=== PATIENT | male | born 1960 | race Two or more races ===

== ENCOUNTER 2022-03-18 20:55 | Inpatient (IN) | payer MEDICARE, OTHER ==
[~2022-03-18] VITALS: Ht 162.6 cm; Wt 82.1 kg
[2022-03-18 22:16] LABS: Basophils # (auto) 0 10 ^3/uL (0-0.2); Basophils % (auto) 0.1 % (0.0-2.0); Eosinophils # (auto) 0 10 ^3/uL (0-0.8); Hematocrit 46.1 % (41.0-53.0); Hemoglobin 15.2 g/dL (13.5-17.5); Lymphocytes # (auto) 0.5 10 ^3/uL (0.4-5.4); Lymphocytes % (auto) 3.3 % (10.0-50.0); Mean Corpuscular Hemoglobin 29.6 pg (28.0-32.0); Mean Corpuscular Hgb Conc. 32.9 g/dL (32.0-36.0); Monocytes # (auto) 1.9 10 ^3/uL (0-1.3); Monocytes % (auto) 11.8 % (0.0-12.0); Neutrophils % (auto) 84.8 % (37.0-80.0); Nucleated Red Blood Cells % 0.1 %; Red Blood Cells 5.12 10^6/uL (4.5-5.90); Red Cell Distribution Width 13.6 % (11.8-14.3); White Blood Cell 16.6 10^3/uL (4.4-10.8)
[2022-03-18 22:19] LABS: Albumin 1.8 g/dL (3.4-5.0); BUN/Creatinine Ratio 23.8; Calcium 8.2 mg/dL (8.5-10.1); Potassium 4.3 mmol/L (3.5-5.1)
[2022-03-18 22:24] LABS: Bilirubin, Total 0.7 mg/dL (0.2-1.0); Total Protein 6.1 g/dL (6.4-8.2)
[2022-03-19 01:14] LABS: Lactic Acid w/Reflex 2.1 mmol/L (0.4-2.0)
[2022-03-19] MEDS ORDERED: SODIUM CHLORIDE 0.9% 1,000 ML IV ONE ×2 (04:30→15:15)
[2022-03-19] MEDS ORDERED: cefTRIAXone 1GM/50ML D5W 50 ML IV ONE (04:30)
[2022-03-19] MEDS ORDERED: InsuLIN REG 1unit/0.01ml Soln (100units/ml) IV ONE (04:30)
[2022-03-19] MEDS ORDERED: SERT50TA19 PO (09:23)
[2022-03-19] MEDS ORDERED: ATOR40TA52 PO (09:23)
[2022-03-19] MEDS ORDERED: NITROGLYCERIN 0.4 MG SL TAB SL PRN (09:30)
[2022-03-19] MEDS ORDERED: HYDROcodone-ACET 5/325MG TAB PO PRN (09:30)
[2022-03-19] MEDS ORDERED: ACETAMINOPHEN 325 MG TAB PO PRN (09:30)
[2022-03-19] MEDS: SODIUM CHLORIDE 0.9% 1,000 ML IV SCH ×2 (09:30→21:35)
[2022-03-19] MEDS ORDERED: DEXTROSE (50%) 50ML SYRG IV PRN (09:30)
[2022-03-19] MEDS ORDERED: DOCUSATE SOD 100 MG CAP PO PRN (09:30)
[2022-03-19] MEDS ORDERED: ONDANSETRON HCL 4 MG/2 ML VIAL IV PRN (09:30)
[2022-03-19] MEDS ORDERED: MORPHINE SULFATE INJ 2 MG/ml SYRG IV PRN (09:30)
[2022-03-19 09:42] VITALS: BP 148/73
[2022-03-19 10:06] LABS: Basophils # (auto) 0 10 ^3/uL (0-0.2); Basophils % (auto) 0.1 % (0.0-2.0); Eosinophils # (auto) 0 10 ^3/uL (0-0.8); Eosinophils % (auto) 0.1 % (0.0-7.0); Hematocrit 44.6 % (41.0-53.0); Hemoglobin 14.3 g/dL (13.5-17.5); Lymphocytes # (auto) 0.9 10 ^3/uL (0.4-5.4); Lymphocytes % (auto) 5.5 % (10.0-50.0); Mean Corpuscular Hemoglobin 29.3 pg (28.0-32.0); Mean Corpuscular Hgb Conc. 32.1 g/dL (32.0-36.0); Mean Corpuscular Volume 91.1 fL (80.0-100.0); Monocytes # (auto) 2.2 10 ^3/uL (0-1.3); Monocytes % (auto) 13.2 % (0.0-12.0); Neutrophils # (auto) 13.8 10 ^3/uL (1.6-8.6); Neutrophils % (auto) 81.1 % (37.0-80.0); Red Cell Distribution Width 13.1 % (11.8-14.3)
[2022-03-19 10:28] LABS: Albumin 1.7 g/dL (3.4-5.0); Bilirubin, Total 0.5 mg/dL (0.2-1.0); Calcium 8.3 mg/dL (8.5-10.1); Potassium 3.7 mmol/L (3.5-5.1); Total Protein 6.8 g/dL (6.4-8.2)
[2022-03-19] MEDS: IPRATROPIUM BROM 0.5 MG/2.5ML INH SOL NEB SCH ×2 (11:11→19:08)
[2022-03-19] MEDS: ALBUTEROL SULF 2.5 MG/0.5ML(0.5%) NEB SOLN NEB SCH ×3 (11:11→19:08)
[2022-03-19] MEDS: ACCU-CHEK COMFORT CURVE STRIP VI SCH ×2 (11:30→19:40)
[2022-03-19] MEDS ORDERED: IOHEXOL 350 MG/ML 100ML IJ ONE (11:49)
[2022-03-19] MEDS ORDERED: VANCOMYCIN PER PHARMACY 0 MG IV SCH (12:00)
[2022-03-19] MEDS ORDERED: VANCOMYCIN 1GM/250ML 250 ML IV ONE (12:00)
[2022-03-19 12:09] LABS: INR 1.14 (0.9-1.15)
[2022-03-19] MEDS: InsuLIN REG 1unit/0.01ml Soln (100units/ml) SC SCH ×2 (12:49→19:40)
[2022-03-19] MEDS: PANTOPRAZOLE 40 MG/10 ML VIAL INJ IV SCH (14:01)
[2022-03-19] MEDS: PIPERACILLIN-TAZOB 3.375GM 100 ML IV SCH ×2 (14:02→21:34)
[2022-03-19] MEDS: SERTRALINE HCL 50 MG TAB PO SCH (14:02)
[2022-03-19] MEDS: ATORVASTATIN 20 MG TAB PO SCH (14:02)
[2022-03-19] MEDS: methylPREDNISolone SOD SUCC 40 MG/ML VL IV SCH (14:04)
[2022-03-19 15:47] LABS: Amylase 9 U/L (25-115); Lipase 33 U/L (73-393)
[2022-03-19] MEDS ORDERED: ETOMIDATE (2MG/ML) 20ML VIAL IV ONE ×2 (21:50→22:00)
[2022-03-19] MEDS ORDERED: ROCURONIUM 10MG/ML 10ML VIAL IV ONE ×2 (21:51→22:00)
[2022-03-19 21:55] VITALS: BP 107/72
[2022-03-19] MEDS: MIDAZOLAM DRIP 50 mg/50mL 50 ML IV SCH (22:28)
[2022-03-20] VITALS (12 sets, daily range): BP systolic 89–128; BP diastolic 49–64
[2022-03-20] MEDS: MIDAZOLAM DRIP 50 mg/50mL 50 ML IV SCH ×3 (01:26→22:48)
[2022-03-20] MEDS: methylPREDNISolone SOD SUCC 40 MG/ML VL IV SCH ×4 (01:33→21:29)
[2022-03-20 01:40] LABS: Urine Specific Gravity 1.032 (1.001-1.035)
[2022-03-20] MEDS: ACCU-CHEK COMFORT CURVE STRIP VI SCH ×5 (01:40→21:37)
[2022-03-20 01:41] LABS: Urine Blood 2+ /uL (Negative)
[2022-03-20] MEDS: InsuLIN REG 1unit/0.01ml Soln (100units/ml) SC SCH ×5 (01:41→21:31)
[2022-03-20 04:37] LABS: Hematocrit 40.5 % (41.0-53.0); Hemoglobin 13.3 g/dL (13.5-17.5); Mean Corpuscular Hemoglobin 29.6 pg (28.0-32.0); Mean Corpuscular Hgb Conc. 32.8 g/dL (32.0-36.0); Mean Corpuscular Volume 90.1 fL (80.0-100.0); Red Cell Distribution Width 13.1 % (11.8-14.3)
[2022-03-20 04:56] LABS: Basophils % (manual) 0 (0.0-2.0); Blast Cells 0; Eosinophils % (manual) 0 (0-7); Metamyelocytes % 0; Myelocytes % 0; Promyelocytes % 0; Reactive Lymphocytes 0
[2022-03-20] MEDS: SODIUM CHLORIDE 0.9% 1,000 ML IV SCH ×4 (05:05→21:38)
[2022-03-20] MEDS: VANCOMYCIN 1GM/250ML 250 ML IV SCH ×2 (05:05→17:01)
[2022-03-20 05:07] LABS: Albumin 1.3 g/dL (3.4-5.0); BUN/Creatinine Ratio 44.9; Bilirubin, Total 0.8 mg/dL (0.2-1.0); Calcium 7.5 mg/dL (8.5-10.1); Potassium 3.9 mmol/L (3.5-5.1); Total Protein 4.9 g/dL (6.4-8.2)
[2022-03-20] MEDS: IPRATROPIUM BROM 0.5 MG/2.5ML INH SOL NEB SCH ×3 (05:37→18:03)
[2022-03-20] MEDS: ALBUTEROL SULF 2.5 MG/0.5ML(0.5%) NEB SOLN NEB SCH ×3 (05:37→18:03)
[2022-03-20] MEDS ORDERED: dilTIAZem 25 MG/5 ML VIAL IV ONE ×2 (05:45→06:00)
[2022-03-20] MEDS ORDERED: MAGNESIUM SULFATE 1GM/100ML 200 ML IV ONE (05:55)
[2022-03-20] MEDS ORDERED: AMIODARONE HCL (50 MG/ ML) 3 ML VIAL IV ONE ×2 (05:55→06:00)
[2022-03-20] MEDS ORDERED: AMIODARONE 450mg/250ml AE 250 ML IV SCH (06:00)
[2022-03-20] MEDS ORDERED: METOPROLOL TARTRATE 1MG/1ML-5ML VIAL IV ONE (06:00)
[2022-03-20] MEDS ORDERED: AMIODARONE HCL 150 MG in D5W 5% 100 ML IV ONE ×4 (06:00)
[2022-03-20] MEDS: MAGNESIUM SULFATE 1GM/100ML 100 ML IV SCH ×2 (06:26→07:13)
[2022-03-20 08:06] LABS: Band Neutrophils % (manual) 53; Lymphocytes % (manual) 9 (10.0-50.0); Monocytes % (manual) 2 (0-12)
[2022-03-20] MEDS: PIPERACILLIN-TAZOB 3.375GM 100 ML IV SCH ×4 (08:23→17:52)
[2022-03-20] MEDS ORDERED: cefTRIAXone 1GM/50ML D5W 50 ML IV SCH (09:00)
[2022-03-20] MEDS ORDERED: ALBUTEROL SULF 2.5 MG/0.5ML(0.5%) NEB SOLN NEB PRN (09:15)
[2022-03-20] MEDS: PANTOPRAZOLE 40 MG/10 ML VIAL INJ IV SCH (10:18)
[2022-03-20] MEDS: ATORVASTATIN 20 MG TAB PO SCH (10:18)
[2022-03-20] MEDS: SERTRALINE HCL 50 MG TAB PO SCH (10:18)
[2022-03-20] MEDS: AZITHROMYCIN 500MG/ 250ML 250 ML IV SCH (10:18)
[2022-03-20] MEDS: NOREPINEPHRINE 8 MG/250ML KIT 250 ML IV SCH (10:19)
[2022-03-20] MEDS: AMIODARONE 450mg/250ml AE 250 ML IV SCH (12:17)
[2022-03-20] MEDS: fentaNYL Drip 2500mCg/250mlNS 250 ML IV SCH (12:32)
[2022-03-21] VITALS (12 sets, daily range): BP systolic 103–196; BP diastolic 51–76
[2022-03-21] MEDS: PIPERACILLIN-TAZOB 3.375GM 100 ML IV SCH ×5 (01:19→21:32)
[2022-03-21] MEDS: AMIODARONE 450mg/250ml AE 250 ML IV SCH ×2 (03:00→13:34)
[2022-03-21] MEDS: SODIUM CHLORIDE 0.9% 1,000 ML IV SCH ×3 (05:00→17:38)
[2022-03-21] MEDS: VANCOMYCIN 1GM/250ML 250 ML IV SCH ×3 (05:00→21:00)
[2022-03-21] MEDS: IPRATROPIUM BROM 0.5 MG/2.5ML INH SOL NEB SCH ×3 (05:32→21:22)
[2022-03-21] MEDS: ALBUTEROL SULF 2.5 MG/0.5ML(0.5%) NEB SOLN NEB SCH ×3 (05:32→21:22)
[2022-03-21 06:34] LABS: Hematocrit 35.2 % (41.0-53.0); Hemoglobin 11.5 g/dL (13.5-17.5); Mean Corpuscular Hemoglobin 29.3 pg (28.0-32.0); Mean Corpuscular Hgb Conc. 32.7 g/dL (32.0-36.0); Mean Corpuscular Volume 89.7 fL (80.0-100.0); Red Blood Cells 3.93 10^6/uL (4.5-5.90); Red Cell Distribution Width 13.4 % (11.8-14.3); White Blood Cell 26.6 10^3/uL (4.4-10.8)
[2022-03-21 06:36] LABS: Basophils % (manual) 0 (0.0-2.0); Blast Cells 0; Eosinophils % (manual) 0 (0-7); Lymphocytes % (manual) 0 (10.0-50.0); Metamyelocytes % 0; Myelocytes % 0; Promyelocytes % 0; Reactive Lymphocytes 0
[2022-03-21 06:52] LABS: Albumin 1.1 g/dL (3.4-5.0); BUN/Creatinine Ratio 31.2; Calcium 7.2 mg/dL (8.5-10.1); Potassium 3.9 mmol/L (3.5-5.1)
[2022-03-21 06:54] LABS: Bilirubin, Total 0.5 mg/dL (0.2-1.0); Total Protein 4.8 g/dL (6.4-8.2)
[2022-03-21 07:01] LABS: Band Neutrophils % (manual) 45; Monocytes % (manual) 2 (0-12)
[2022-03-21] MEDS: ACCU-CHEK COMFORT CURVE STRIP VI SCH ×4 (07:06→22:00)
[2022-03-21] MEDS: InsuLIN REG 1unit/0.01ml Soln (100units/ml) SC SCH ×4 (07:14→16:15)
[2022-03-21] MEDS: methylPREDNISolone SOD SUCC 40 MG/ML VL IV SCH ×3 (07:15→22:36)
[2022-03-21] MEDS: NOREPINEPHRINE 8 MG/250ML KIT 250 ML IV SCH (07:31)
[2022-03-21] MEDS: PANTOPRAZOLE 40 MG/10 ML VIAL INJ IV SCH (10:56)
[2022-03-21] MEDS: AZITHROMYCIN 500MG/ 250ML 250 ML IV SCH (10:57)
[2022-03-21] MEDS: SERTRALINE HCL 50 MG TAB PO SCH (10:57)
[2022-03-21] MEDS: ATORVASTATIN 20 MG TAB PO SCH (10:59)
[2022-03-21] MEDS: MIDAZOLAM DRIP 50 mg/50mL 50 ML IV SCH ×2 (11:01→16:17)
[2022-03-21] MEDS: fentaNYL Drip 2500mCg/250mlNS 250 ML IV SCH (11:30)
[2022-03-21 16:54] LABS: Basophils % (manual) 0 (0.0-2.0); Blast Cells 0; Eosinophils % (manual) 0 (0-7); Myelocytes % 0; Promyelocytes % 0; Reactive Lymphocytes 0
[2022-03-21 18:48] LABS: Band Neutrophils % (manual) 22; Lymphocytes % (manual) 1 (10.0-50.0); Metamyelocytes % 1; Monocytes % (manual) 2 (0-12)
[2022-03-21 18:50] LABS: White Blood Cell 24.2 10^3/uL (4.4-10.8)
[2022-03-21] MEDS ORDERED: MICAFUNGIN SODIUM 100 MG in SODIUM CHL 0.9% 100 ML IV STA (23:25)
[2022-03-22] VITALS (13 sets, daily range): BP systolic 104–140; BP diastolic 46–61
[2022-03-22] MEDS: SODIUM CHLORIDE 0.9% 1,000 ML IV SCH ×4 (01:13→21:46)
[2022-03-22 03:53] LABS: Basophils # (auto) 0.3 10 ^3/uL (0-0.2); Eosinophils # (auto) 0 10 ^3/uL (0-0.8); Hematocrit 33.3 % (41.0-53.0); Lymphocytes # (auto) 0.3 10 ^3/uL (0.4-5.4); Lymphocytes % (auto) 1.2 % (10.0-50.0); Mean Corpuscular Hemoglobin 29.4 pg (28.0-32.0); Mean Corpuscular Hgb Conc. 32.9 g/dL (32.0-36.0); Mean Corpuscular Volume 89.4 fL (80.0-100.0); Monocytes # (auto) 0.7 10 ^3/uL (0-1.3); Monocytes % (auto) 2.7 % (0.0-12.0); Neutrophils # (auto) 25.3 10 ^3/uL (1.6-8.6); Neutrophils % (auto) 95.1 % (37.0-80.0); Nucleated Red Blood Cells % 0.1 %; Red Blood Cells 3.72 10^6/uL (4.5-5.90); Red Cell Distribution Width 13.4 % (11.8-14.3); White Blood Cell 26.6 10^3/uL (4.4-10.8)
[2022-03-22 04:11] LABS: Calcium 7.1 mg/dL (8.5-10.1); Potassium 3.5 mmol/L (3.5-5.1)
[2022-03-22 04:14] LABS: BUN/Creatinine Ratio 35.3; Bilirubin, Total 0.4 mg/dL (0.2-1.0); Total Protein 5.4 g/dL (6.4-8.2)
[2022-03-22] MEDS: IPRATROPIUM BROM 0.5 MG/2.5ML INH SOL NEB SCH ×3 (06:00→18:27)
[2022-03-22] MEDS: ALBUTEROL SULF 2.5 MG/0.5ML(0.5%) NEB SOLN NEB SCH ×3 (06:00→18:27)
[2022-03-22] MEDS: methylPREDNISolone SOD SUCC 40 MG/ML VL IV SCH ×3 (06:11→22:33)
[2022-03-22] MEDS: PIPERACILLIN-TAZOB 3.375GM 100 ML IV SCH ×3 (06:11→18:00)
[2022-03-22] MEDS: NOREPINEPHRINE 8 MG/250ML KIT 250 ML IV SCH (07:15)
[2022-03-22] MEDS: InsuLIN REG 1unit/0.01ml Soln (100units/ml) SC SCH ×4 (09:05→22:32)
[2022-03-22] MEDS: ACCU-CHEK COMFORT CURVE STRIP VI SCH ×4 (09:06→22:24)
[2022-03-22] MEDS ORDERED: FUROSEMIDE 40 MG/4 ML VIAL IV ONE (09:30)
[2022-03-22] MEDS: VANCOMYCIN 1GM/250ML 250 ML IV SCH ×2 (09:57→21:56)
[2022-03-22] MEDS ORDERED: ENOXAPARIN SOD 40 MG/0.4 ML SYRINGE SC SCH (10:00)
[2022-03-22] MEDS: MIDAZOLAM DRIP 50 mg/50mL 50 ML IV SCH ×3 (10:07→21:36)
[2022-03-22] MEDS: ATORVASTATIN 20 MG TAB PO SCH (12:28)
[2022-03-22] MEDS: AZITHROMYCIN 500MG/ 250ML 250 ML IV SCH (12:28)
[2022-03-22] MEDS: PANTOPRAZOLE 40 MG/10 ML VIAL INJ IV SCH (12:28)
[2022-03-22] MEDS: SERTRALINE HCL 50 MG TAB PO SCH (12:28)
[2022-03-22] MEDS: AMIODARONE 450mg/250ml AE 250 ML IV SCH (17:41)
[2022-03-22] MEDS: fentaNYL Drip 2500mCg/250mlNS 250 ML IV SCH (21:35)
[2022-03-23] VITALS (12 sets, daily range): BP systolic 107–155; BP diastolic 49–61
[2022-03-23] MEDS: FLUCONAZOLE 200MG/100ML 100 ML IV SCH ×8 (00:39→12:42)
[2022-03-23] MEDS: PIPERACILLIN-TAZOB 3.375GM 100 ML IV SCH ×4 (00:57→18:19)
[2022-03-23] MEDS: MIDAZOLAM DRIP 50 mg/50mL 50 ML IV SCH ×2 (04:27→23:08)
[2022-03-23] MEDS: SODIUM CHLORIDE 0.9% 1,000 ML IV SCH ×4 (04:28→23:40)
[2022-03-23] MEDS ORDERED: hydrALAZINE HCL 20 MG/ML VL IV PRN (05:00)
[2022-03-23] MEDS: IPRATROPIUM BROM 0.5 MG/2.5ML INH SOL NEB SCH ×3 (06:00→20:00)
[2022-03-23] MEDS: ALBUTEROL SULF 2.5 MG/0.5ML(0.5%) NEB SOLN NEB SCH ×3 (06:35→20:00)
[2022-03-23] MEDS: ACCU-CHEK COMFORT CURVE STRIP VI SCH ×4 (07:00→22:08)
[2022-03-23] MEDS: NOREPINEPHRINE 8 MG/250ML KIT 250 ML IV SCH (07:15)
[2022-03-23] MEDS: methylPREDNISolone SOD SUCC 40 MG/ML VL IV SCH ×3 (07:30→22:11)
[2022-03-23] MEDS: InsuLIN REG 1unit/0.01ml Soln (100units/ml) SC SCH ×4 (07:43→22:12)
[2022-03-23 07:53] LABS: Basophils # (auto) 0.1 10 ^3/uL (0-0.2); Basophils % (auto) 0.3 % (0.0-2.0); Eosinophils # (auto) 0 10 ^3/uL (0-0.8); Hematocrit 32.3 % (41.0-53.0); Hemoglobin 10.4 g/dL (13.5-17.5); Lymphocytes # (auto) 0.2 10 ^3/uL (0.4-5.4); Lymphocytes % (auto) 1.2 % (10.0-50.0); Mean Corpuscular Hemoglobin 29.1 pg (28.0-32.0); Mean Corpuscular Hgb Conc. 32.1 g/dL (32.0-36.0); Mean Corpuscular Volume 90.6 fL (80.0-100.0); Monocytes # (auto) 0.9 10 ^3/uL (0-1.3); Monocytes % (auto) 4.5 % (0.0-12.0); Neutrophils # (auto) 18.1 10 ^3/uL (1.6-8.6); Red Blood Cells 3.57 10^6/uL (4.5-5.90); Red Cell Distribution Width 13.5 % (11.8-14.3); White Blood Cell 19.3 10^3/uL (4.4-10.8)
[2022-03-23 08:11] LABS: Calcium 6.8 mg/dL (8.5-10.1); Potassium 3.8 mmol/L (3.5-5.1)
[2022-03-23 08:15] LABS: BUN/Creatinine Ratio 35.5; Bilirubin, Total 0.3 mg/dL (0.2-1.0)
[2022-03-23] MEDS: VANCOMYCIN 1GM/250ML 250 ML IV SCH ×3 (09:21→21:04)
[2022-03-23] MEDS: ATORVASTATIN 20 MG TAB PO SCH (11:22)
[2022-03-23] MEDS: SERTRALINE HCL 50 MG TAB PO SCH (11:22)
[2022-03-23] MEDS: PANTOPRAZOLE 40 MG/10 ML VIAL INJ IV SCH (11:22)
[2022-03-23] MEDS: fentaNYL Drip 2500mCg/250mlNS 250 ML IV SCH (11:39)
[2022-03-23] MEDS: AMIODARONE 450mg/250ml AE 250 ML IV SCH ×2 (15:02)
[2022-03-24] VITALS (19 sets, daily range): BP systolic 109–150; BP diastolic 51–78
[2022-03-24] MEDS: PIPERACILLIN-TAZOB 3.375GM 100 ML IV SCH ×4 (00:05→18:36)
[2022-03-24] MEDS: AMIODARONE 450mg/250ml AE 250 ML IV SCH (06:00)
[2022-03-24] MEDS: methylPREDNISolone SOD SUCC 40 MG/ML VL IV SCH ×3 (06:15→23:12)
[2022-03-24 06:29] LABS: Hematocrit 30.3 % (41.0-53.0); Hemoglobin 9.9 g/dL (13.5-17.5); Mean Corpuscular Hemoglobin 29.5 pg (28.0-32.0); Mean Corpuscular Hgb Conc. 32.6 g/dL (32.0-36.0); Mean Corpuscular Volume 90.4 fL (80.0-100.0); Red Blood Cells 3.36 10^6/uL (4.5-5.90); Red Cell Distribution Width 13.2 % (11.8-14.3); White Blood Cell 15.8 10^3/uL (4.4-10.8)
[2022-03-24 06:31] LABS: Basophils % (manual) 0 (0.0-2.0); Blast Cells 0; Eosinophils % (manual) 0 (0-7); Metamyelocytes % 0; Myelocytes % 0; Promyelocytes % 0; Reactive Lymphocytes 0
[2022-03-24] MEDS: ACCU-CHEK COMFORT CURVE STRIP VI SCH ×4 (06:39→23:11)
[2022-03-24] MEDS: InsuLIN REG 1unit/0.01ml Soln (100units/ml) SC SCH ×4 (06:42→23:11)
[2022-03-24 06:48] LABS: Calcium 6.6 mg/dL (8.5-10.1); Potassium 3.9 mmol/L (3.5-5.1)
[2022-03-24] MEDS: SODIUM CHLORIDE 0.9% 1,000 ML IV SCH ×3 (06:50→23:09)
[2022-03-24 06:57] LABS: BUN/Creatinine Ratio 35.6; Bilirubin, Total 0.4 mg/dL (0.2-1.0); Total Protein 4.2 g/dL (6.4-8.2)
[2022-03-24 07:11] LABS: Albumin 0.9 g/dL (3.4-5.0)
[2022-03-24] MEDS: IPRATROPIUM BROM 0.5 MG/2.5ML INH SOL NEB SCH ×3 (07:11→18:32)
[2022-03-24] MEDS: ALBUTEROL SULF 2.5 MG/0.5ML(0.5%) NEB SOLN NEB SCH ×3 (07:11→18:32)
[2022-03-24] MEDS: NOREPINEPHRINE 8 MG/250ML KIT 250 ML IV SCH (07:15)
[2022-03-24] MEDS: ATORVASTATIN 20 MG TAB PO SCH (09:52)
[2022-03-24] MEDS: VANCOMYCIN 1GM/250ML 250 ML IV SCH ×2 (09:52→21:00)
[2022-03-24] MEDS: PANTOPRAZOLE 40 MG/10 ML VIAL INJ IV SCH (09:52)
[2022-03-24] MEDS: SERTRALINE HCL 50 MG TAB PO SCH (09:52)
[2022-03-24] MEDS: FLUCONAZOLE 200MG/100ML 100 ML IV SCH ×2 (10:07→11:24)
[2022-03-24 11:33] LABS: Band Neutrophils % (manual) 22; Lymphocytes % (manual) 2 (10.0-50.0); Monocytes % (manual) 1 (0-12)
[2022-03-24] MEDS: fentaNYL Drip 2500mCg/250mlNS 250 ML IV SCH (11:37)
[2022-03-24] MEDS ORDERED: IOHEXOL 300 MG/ML 100ML BOTTLE IJ ONE (12:00)
[2022-03-24] MEDS ORDERED: AMIODARONE HCL 200 MG TAB GT ONE (15:30)
[2022-03-24] MEDS: AMIODARONE HCL 200 MG TAB GT SCH (23:10)
[2022-03-25] VITALS (73 sets, daily range): BP systolic 136–166; BP diastolic 67–82
[2022-03-25] MEDS: SODIUM CHLORIDE 0.9% 1,000 ML IV SCH ×3 (02:20→15:20)
[2022-03-25 03:54] LABS: Basophils # (auto) 0.1 10 ^3/uL (0-0.2); Basophils % (auto) 0.3 % (0.0-2.0); Eosinophils # (auto) 0 10 ^3/uL (0-0.8); Hematocrit 36.1 % (41.0-53.0); Hemoglobin 11.8 g/dL (13.5-17.5); Lymphocytes # (auto) 0.3 10 ^3/uL (0.4-5.4); Lymphocytes % (auto) 1.3 % (10.0-50.0); Mean Corpuscular Hemoglobin 29.2 pg (28.0-32.0); Mean Corpuscular Hgb Conc. 32.7 g/dL (32.0-36.0); Mean Corpuscular Volume 89.5 fL (80.0-100.0); Monocytes # (auto) 0.7 10 ^3/uL (0-1.3); Monocytes % (auto) 3.6 % (0.0-12.0); Neutrophils # (auto) 19.7 10 ^3/uL (1.6-8.6); Neutrophils % (auto) 94.8 % (37.0-80.0); Red Blood Cells 4.03 10^6/uL (4.5-5.90); Red Cell Distribution Width 13.3 % (11.8-14.3); White Blood Cell 20.7 10^3/uL (4.4-10.8)
[2022-03-25 04:05] LABS: Albumin 1.1 g/dL (3.4-5.0); BUN/Creatinine Ratio 38.9; Calcium 7.3 mg/dL (8.5-10.1); Potassium 4.1 mmol/L (3.5-5.1)
[2022-03-25 04:08] LABS: Bilirubin, Total 0.5 mg/dL (0.2-1.0); Total Protein 5.3 g/dL (6.4-8.2)
[2022-03-25] MEDS: IPRATROPIUM BROM 0.5 MG/2.5ML INH SOL NEB SCH ×3 (05:53→17:59)
[2022-03-25] MEDS: ALBUTEROL SULF 2.5 MG/0.5ML(0.5%) NEB SOLN NEB SCH ×3 (05:53→17:59)
[2022-03-25] MEDS: PIPERACILLIN-TAZOB 3.375GM 100 ML IV SCH ×4 (06:00→18:05)
[2022-03-25] MEDS: methylPREDNISolone SOD SUCC 40 MG/ML VL IV SCH ×3 (06:00→23:02)
[2022-03-25] MEDS: InsuLIN REG 1unit/0.01ml Soln (100units/ml) SC SCH ×4 (06:47→22:52)
[2022-03-25] MEDS: ACCU-CHEK COMFORT CURVE STRIP VI SCH ×4 (07:01→22:53)
[2022-03-25] MEDS: NOREPINEPHRINE 8 MG/250ML KIT 250 ML IV SCH (07:15)
[2022-03-25] MEDS: ENOXAPARIN SOD 80 MG/0.8ML SYRINGE SC SCH ×2 (09:42→23:03)
[2022-03-25] MEDS: FLUCONAZOLE 200MG/100ML 100 ML IV SCH ×2 (09:42→11:35)
[2022-03-25] MEDS: PANTOPRAZOLE 40 MG/10 ML VIAL INJ IV SCH (09:42)
[2022-03-25] MEDS: VANCOMYCIN 1GM/250ML 250 ML IV SCH ×2 (09:42→21:17)
[2022-03-25] MEDS: AMIODARONE HCL 200 MG TAB GT SCH ×2 (09:43→23:02)
[2022-03-25] MEDS: SERTRALINE HCL 50 MG TAB PO SCH (09:43)
[2022-03-25] MEDS: fentaNYL Drip 2500mCg/250mlNS 250 ML IV SCH (09:44)
[2022-03-25] MEDS: MIDAZOLAM DRIP 50 mg/50mL 50 ML IV SCH (15:54)
[2022-03-25] MEDS ORDERED: hydrALAZINE HCL 20 MG/ML VL IV PRN (16:00)
[2022-03-25] MEDS ORDERED: ATORVASTATIN 20 MG TAB PO SCH (22:00)
[2022-03-26] VITALS (79 sets, daily range): BP systolic 113–152; BP diastolic 53–76
[2022-03-26] MEDS: PIPERACILLIN-TAZOB 3.375GM 100 ML IV SCH ×4 (01:01→17:40)
[2022-03-26] MEDS: SODIUM CHLORIDE 0.9% 1,000 ML IV SCH ×4 (02:00→18:20)
[2022-03-26 04:04] LABS: Basophils # (auto) 0.1 10 ^3/uL (0-0.2); Basophils % (auto) 0.6 % (0.0-2.0); Eosinophils # (auto) 0 10 ^3/uL (0-0.8); Hematocrit 37.6 % (41.0-53.0); Hemoglobin 12.3 g/dL (13.5-17.5); Lymphocytes # (auto) 0.3 10 ^3/uL (0.4-5.4); Lymphocytes % (auto) 1.5 % (10.0-50.0); Mean Corpuscular Hemoglobin 29.5 pg (28.0-32.0); Mean Corpuscular Hgb Conc. 32.6 g/dL (32.0-36.0); Mean Corpuscular Volume 90.4 fL (80.0-100.0); Monocytes # (auto) 0.5 10 ^3/uL (0-1.3); Monocytes % (auto) 2.9 % (0.0-12.0); Nucleated Red Blood Cells % 0.1 %; Red Blood Cells 4.15 10^6/uL (4.5-5.90); Red Cell Distribution Width 13.3 % (11.8-14.3); White Blood Cell 17.9 10^3/uL (4.4-10.8)
[2022-03-26 04:21] LABS: Calcium 7.1 mg/dL (8.5-10.1); Potassium 4.4 mmol/L (3.5-5.1)
[2022-03-26 04:25] LABS: BUN/Creatinine Ratio 53.2; Bilirubin, Total 0.7 mg/dL (0.2-1.0); Total Protein 4.5 g/dL (6.4-8.2)
[2022-03-26] MEDS: methylPREDNISolone SOD SUCC 40 MG/ML VL IV SCH ×2 (06:00→13:51)
[2022-03-26] MEDS: ALBUTEROL SULF 2.5 MG/0.5ML(0.5%) NEB SOLN NEB SCH ×3 (06:16→18:29)
[2022-03-26] MEDS: IPRATROPIUM BROM 0.5 MG/2.5ML INH SOL NEB SCH ×3 (06:17→18:29)
[2022-03-26] MEDS: ACCU-CHEK COMFORT CURVE STRIP VI SCH ×3 (07:15→16:52)
[2022-03-26] MEDS: NOREPINEPHRINE 8 MG/250ML KIT 250 ML IV SCH (07:15)
[2022-03-26] MEDS: InsuLIN REG 1unit/0.01ml Soln (100units/ml) SC SCH ×3 (07:16→16:53)
[2022-03-26] MEDS: VANCOMYCIN 1GM/250ML 250 ML IV SCH (08:48)
[2022-03-26] MEDS: FLUCONAZOLE 200MG/100ML 100 ML IV SCH ×2 (09:30→11:18)
[2022-03-26] MEDS: PANTOPRAZOLE 40 MG/10 ML VIAL INJ IV SCH (09:30)
[2022-03-26] MEDS: AMIODARONE HCL 200 MG TAB GT SCH (09:30)
[2022-03-26] MEDS: fentaNYL Drip 2500mCg/250mlNS 250 ML IV SCH (09:31)
[2022-03-26] MEDS: SERTRALINE HCL 50 MG TAB PO SCH (09:31)
[2022-03-26] MEDS ORDERED: ENOXAPARIN SOD 40 MG/0.4 ML SYRINGE SC SCH (10:00)
[2022-03-26] MEDS: MIDAZOLAM DRIP 50 mg/50mL 50 ML IV SCH ×2 (12:45→17:56)
== END 2022-03-26 21:00 | disposition short-term general hospital (02) | DRG 870 ==
LOC: ER 20:57 → TELE 03-19 13:39 → ICU WEST 03-20 11:05 → TELE 03-20 12:07 → ICU WEST 03-24 17:55
PROVIDERS: ADMIT Internal Medicine; ATTEND Internal Medicine
PROC: 5A1955Z Respiratory Ventilation, Greater than 96 Consecutive Hours (ICD-10-PCS; 2022-03-19)
PROC: 0BH17EZ Insertion of Endotracheal Airway into Trachea, Via Natural or Artificial Opening (ICD-10-PCS; 2022-03-19)
PROC: 05HY33Z Insertion of Infusion Device into Upper Vein, Percutaneous Approach (ICD-10-PCS; principal; 2022-03-20)
PROC: B54MZZA Ultrasonography of Right Upper Extremity Veins, Guidance (ICD-10-PCS; 2022-03-20)
DX: A41.9 Sepsis, unspecified organism (principal); J18.9 Pneumonia, unspecified organism; J85.3 Abscess of mediastinum; J96.01 Acute respiratory failure with hypoxia; E46 Unspecified protein-calorie malnutrition; I31.39 Other pericardial effusion (noninflammatory); I47.20 Ventricular tachycardia, unspecified; J44.0 Chronic obstructive pulmonary disease with (acute) lower respiratory infection; J90 Pleural effusion, not elsewhere classified; E78.5 Hyperlipidemia, unspecified; I10 Essential (primary) hypertension; J45.909 Unspecified asthma, uncomplicated; E11.65 Type 2 diabetes mellitus with hyperglycemia; E88.09 Other disorders of plasma-protein metabolism, not elsewhere classified; Z68.24 Body mass index [BMI] 24.0-24.9, adult
CPT/HCPCS: 36415; 36600; 71045; 71250; 71260; 71275; 76604; 80053; 80202; 81003; 82150; 82565; 82805; 82962; 83036; 83605; 83615; 83690; 83735; 83880; 84484; 84520; 85007; 85025; 85027; 85048; 85610; 87040; 87070; 87077; 87081; 87205; 87426; 87804; 93005; 93306; 94002; 94003; 94640; 96365; 96375; C9113; G0378; J0696; J1450; J1815; J2248; J2250; J2543; J7060

== ENCOUNTER 2022-04-29 00:49 | Inpatient (IN) | payer OTHER ==
[~2022-04-29] VITALS: Ht 162.6 cm; Wt 57.9 kg
[~2022-04-29 00:49] MED LIST: ATOR40TA52 PO; SERT50TA19 PO
[2022-04-29 00:52] VITALS: BP_SYST 137; BP_DIAS 73; BP_DIAS 75
[2022-04-29 05:00] VITALS: BP 124/68
[2022-04-29] MEDS ORDERED: MORPHINE SULFATE INJ 2 MG/ml SYRG IV PRN ×3 (05:15→10:45)
[2022-04-29] MEDS ORDERED: NITROGLYCERIN 0.4 MG SL TAB SL PRN ×2 (05:15→10:45)
[2022-04-29] MEDS ORDERED: ALBUTEROL SULF 2.5 MG/0.5ML(0.5%) NEB SOLN NEB PRN (05:30)
[2022-04-29] MEDS ORDERED: DEXTROSE (50%) 50ML SYRG IV PRN (05:45)
[2022-04-29 06:04] LABS: Basophils # (auto) 0.3 10 ^3/uL (0-0.2); Basophils % (auto) 2.3 % (0.0-2.0); Eosinophils # (auto) 0.6 10 ^3/uL (0-0.8); Eosinophils % (auto) 5.7 % (0.0-7.0); Hematocrit 27.9 % (41.0-53.0); Hemoglobin 9.3 g/dL (13.5-17.5); Lymphocytes # (auto) 1.4 10 ^3/uL (0.4-5.4); Lymphocytes % (auto) 12.4 % (10.0-50.0); Mean Corpuscular Hemoglobin 28.8 pg (28.0-32.0); Mean Corpuscular Hgb Conc. 33.4 g/dL (32.0-36.0); Mean Corpuscular Volume 86.1 fL (80.0-100.0); Monocytes # (auto) 1.6 10 ^3/uL (0-1.3); Neutrophils # (auto) 7.4 10 ^3/uL (1.6-8.6); Neutrophils % (auto) 65.6 % (37.0-80.0); Nucleated Red Blood Cells % 0.1 %; Red Blood Cells 3.24 10^6/uL (4.5-5.90); White Blood Cell 11.3 10^3/uL (4.4-10.8)
[2022-04-29 06:22] LABS: Albumin 1.8 g/dL (3.4-5.0); BUN/Creatinine Ratio 58.1; Calcium 8.7 mg/dL (8.5-10.1); INR 1.04 (0.9-1.15); Partial Thromboplastin Time 33.9 sec (24.6-33.4); Potassium 4.7 mmol/L (3.5-5.1)
[2022-04-29] MEDS: D5W/SOD CHL 0.45% 1,000 ML IV SCH ×2 (06:23→20:48)
[2022-04-29] MEDS: ACCU-CHEK COMFORT CURVE STRIP VI SCH ×4 (06:23→22:19)
[2022-04-29] MEDS: InsuLIN REG 1unit/0.01ml Soln (100units/ml) SC SCH ×4 (06:23→22:20)
[2022-04-29 06:25] LABS: Bilirubin, Total 0.6 mg/dL (0.2-1.0); Total Protein 6.3 g/dL (6.4-8.2)
[2022-04-29] MEDS: ENOXAPARIN SOD 100 MG/1 ML SYRINGE SC SCH ×2 (09:03→22:17)
[2022-04-29 09:21] VITALS: BP 119/64
[2022-04-29] MEDS ORDERED: hydrALAZINE HCL 20 MG/ML VL IV PRN (11:00)
[2022-04-29 12:30] VITALS: BP 127/67
[2022-04-29] MEDS: MICAFUNGIN SODIUM 150 MG in SODIUM CHL 0.9% 100 ML IV SCH (15:47)
[2022-04-29 16:31] VITALS: BP 108/63
[2022-04-29] MEDS: MEROPENEM 1GM IVPB 100 ML IV SCH ×2 (18:28→22:00)
[2022-04-29] MEDS: Glucerna 1.2 Cal 1Liter BOTTLE GT SCH (18:55)
[2022-04-29 22:00] VITALS: BP 100/99
[2022-04-30 05:00] VITALS: BP 134/67
[2022-04-30] MEDS: MEROPENEM 1GM IVPB 100 ML IV SCH ×3 (05:39→21:45)
[2022-04-30 06:07] LABS: Basophils # (auto) 0.2 10 ^3/uL (0-0.2); Basophils % (auto) 2.6 % (0.0-2.0); Eosinophils # (auto) 0.8 10 ^3/uL (0-0.8); Hematocrit 26.4 % (41.0-53.0); Hemoglobin 9.3 g/dL (13.5-17.5); Lymphocytes # (auto) 1.3 10 ^3/uL (0.4-5.4); Lymphocytes % (auto) 15.9 % (10.0-50.0); Mean Corpuscular Hemoglobin 30.8 pg (28.0-32.0); Mean Corpuscular Hgb Conc. 35.4 g/dL (32.0-36.0); Monocytes # (auto) 1.3 10 ^3/uL (0-1.3); Monocytes % (auto) 15.8 % (0.0-12.0); Neutrophils # (auto) 4.5 10 ^3/uL (1.6-8.6); Neutrophils % (auto) 55.7 % (37.0-80.0); Red Blood Cells 3.03 10^6/uL (4.5-5.90); Red Cell Distribution Width 13.7 % (11.8-14.3); White Blood Cell 8.2 10^3/uL (4.4-10.8)
[2022-04-30] MEDS: InsuLIN REG 1unit/0.01ml Soln (100units/ml) SC SCH ×4 (06:11→21:44)
[2022-04-30] MEDS: ACCU-CHEK COMFORT CURVE STRIP VI SCH ×4 (06:11→21:43)
[2022-04-30 06:21] LABS: Potassium 4.2 mmol/L (3.5-5.1)
[2022-04-30 06:31] LABS: Albumin 1.8 g/dL (3.4-5.0); Bilirubin, Total 0.6 mg/dL (0.2-1.0); Calcium 8.5 mg/dL (8.5-10.1); Total Protein 6.6 g/dL (6.4-8.2)
[2022-04-30] MEDS: SODIUM CHLORIDE 0.9% 1,000 ML IV SCH ×2 (08:38→20:38)
[2022-04-30 09:20] VITALS: BP 128/68
[2022-04-30] MEDS: ENOXAPARIN SOD 100 MG/1 ML SYRINGE SC SCH ×2 (10:08→21:44)
[2022-04-30] MEDS: MICAFUNGIN SODIUM 150 MG in SODIUM CHL 0.9% 100 ML IV SCH (10:08)
[2022-04-30 11:50] VITALS: BP 128/68
[2022-04-30 12:00] VITALS: BP 139/68
[2022-04-30] MEDS ORDERED: ALBUTEROL MEDNEB 2.5 mg/3ml NEB ONE ×3 (12:20→23:38)
[2022-04-30] MEDS: ALBUTEROL SULF 2.5 MG/0.5ML(0.5%) NEB SOLN NEB SCH ×2 (12:27→20:34)
[2022-04-30] MEDS: Glucerna 1.2 Cal 1Liter BOTTLE GT SCH (14:27)
[2022-04-30 16:43] VITALS: BP 120/65
[2022-04-30 22:00] VITALS: BP 127/50
[2022-05-01] MEDS: ALBUTEROL SULF 2.5 MG/0.5ML(0.5%) NEB SOLN NEB SCH ×5 (00:14→23:42)
[2022-05-01 05:00] VITALS: BP 125/58
[2022-05-01] MEDS: MEROPENEM 1GM IVPB 100 ML IV SCH ×3 (05:51→22:19)
[2022-05-01 06:16] LABS: Albumin 1.8 g/dL (3.4-5.0); Calcium 8.3 mg/dL (8.5-10.1); Potassium 4.5 mmol/L (3.5-5.1)
[2022-05-01] MEDS: ACCU-CHEK COMFORT CURVE STRIP VI SCH ×4 (06:20→22:20)
[2022-05-01 06:21] LABS: Bilirubin, Total 0.6 mg/dL (0.2-1.0); Total Protein 6.2 g/dL (6.4-8.2)
[2022-05-01] MEDS: InsuLIN REG 1unit/0.01ml Soln (100units/ml) SC SCH ×4 (06:25→22:27)
[2022-05-01 06:28] LABS: Basophils # (auto) 0.1 10 ^3/uL (0-0.2); Basophils % (auto) 1.5 % (0.0-2.0); Eosinophils # (auto) 0.7 10 ^3/uL (0-0.8); Eosinophils % (auto) 6.8 % (0.0-7.0); Hematocrit 27.6 % (41.0-53.0); Hemoglobin 9.3 g/dL (13.5-17.5); Lymphocytes # (auto) 1.5 10 ^3/uL (0.4-5.4); Lymphocytes % (auto) 15.1 % (10.0-50.0); Mean Corpuscular Hemoglobin 30.5 pg (28.0-32.0); Mean Corpuscular Hgb Conc. 33.9 g/dL (32.0-36.0); Mean Corpuscular Volume 89.9 fL (80.0-100.0); Monocytes # (auto) 1.3 10 ^3/uL (0-1.3); Monocytes % (auto) 12.8 % (0.0-12.0); Neutrophils # (auto) 6.4 10 ^3/uL (1.6-8.6); Neutrophils % (auto) 63.8 % (37.0-80.0); Nucleated Red Blood Cells % 0.1 %; Red Blood Cells 3.06 10^6/uL (4.5-5.90); Red Cell Distribution Width 13.4 % (11.8-14.3); White Blood Cell 10.1 10^3/uL (4.4-10.8)
[2022-05-01] MEDS ORDERED: ALBUTEROL MEDNEB 2.5 mg/3ml NEB ONE ×4 (06:51→23:42)
[2022-05-01 08:00] VITALS: BP 133/55
[2022-05-01] MEDS: MICAFUNGIN SODIUM 150 MG in SODIUM CHL 0.9% 100 ML IV SCH (09:56)
[2022-05-01] MEDS: SODIUM CHLORIDE 0.9% 1,000 ML IV SCH (09:56)
[2022-05-01] MEDS: ENOXAPARIN SOD 100 MG/1 ML SYRINGE SC SCH ×2 (09:56→22:22)
[2022-05-01 12:00] VITALS: BP 129/66
[2022-05-01 16:00] VITALS: BP 122/62
[2022-05-01 22:00] VITALS: BP 129/65
[2022-05-02 05:00] VITALS: BP 122/51
[2022-05-02 05:36] LABS: Basophils # (auto) 0 10 ^3/uL (0-0.2); Basophils % (auto) 0.5 % (0.0-2.0); Eosinophils # (auto) 1.1 10 ^3/uL (0-0.8); Eosinophils % (auto) 14.1 % (0.0-7.0); Hematocrit 25.4 % (41.0-53.0); Hemoglobin 8.5 g/dL (13.5-17.5); Lymphocytes # (auto) 1.1 10 ^3/uL (0.4-5.4); Lymphocytes % (auto) 13.7 % (10.0-50.0); Mean Corpuscular Hemoglobin 29.1 pg (28.0-32.0); Mean Corpuscular Hgb Conc. 33.5 g/dL (32.0-36.0); Mean Corpuscular Volume 86.7 fL (80.0-100.0); Monocytes # (auto) 1.1 10 ^3/uL (0-1.3); Monocytes % (auto) 14.3 % (0.0-12.0); Neutrophils # (auto) 4.4 10 ^3/uL (1.6-8.6); Neutrophils % (auto) 57.4 % (37.0-80.0); Red Blood Cells 2.93 10^6/uL (4.5-5.90); Red Cell Distribution Width 13.7 % (11.8-14.3); White Blood Cell 7.7 10^3/uL (4.4-10.8)
[2022-05-02 05:55] LABS: Albumin 1.7 g/dL (3.4-5.0); Calcium 8.3 mg/dL (8.5-10.1); Potassium 4.3 mmol/L (3.5-5.1)
[2022-05-02 05:58] LABS: Bilirubin, Total 0.5 mg/dL (0.2-1.0); Total Protein 5.9 g/dL (6.4-8.2)
[2022-05-02] MEDS ORDERED: ALBUTEROL MEDNEB 2.5 mg/3ml NEB ONE ×3 (05:59→18:02)
[2022-05-02] MEDS: MEROPENEM 1GM IVPB 100 ML IV SCH ×2 (06:24→15:07)
[2022-05-02] MEDS: ACCU-CHEK COMFORT CURVE STRIP VI SCH ×2 (06:24→12:13)
[2022-05-02] MEDS: InsuLIN REG 1unit/0.01ml Soln (100units/ml) SC SCH ×2 (06:32→12:25)
[2022-05-02] MEDS: SODIUM CHLORIDE 0.9% 1,000 ML IV SCH ×2 (06:36→10:40)
[2022-05-02] MEDS: Glucerna 1.2 Cal 1Liter BOTTLE GT SCH (06:36)
[2022-05-02] MEDS: ALBUTEROL SULF 2.5 MG/0.5ML(0.5%) NEB SOLN NEB SCH ×2 (07:17→11:53)
[2022-05-02 07:30] VITALS: BP 138/65
[2022-05-02 08:56] VITALS: BP 138/65
[2022-05-02] MEDS: ENOXAPARIN SOD 100 MG/1 ML SYRINGE SC SCH (10:35)
[2022-05-02] MEDS: MICAFUNGIN SODIUM 150 MG in SODIUM CHL 0.9% 100 ML IV SCH (10:35)
[2022-05-02 13:09] VITALS: BP 126/61
[2022-05-02 16:32] VITALS: BP 126/61
[2022-05-02 17:00] VITALS: BP 126/70
== END 2022-05-02 17:26 | DRG 189 ==
LOC: TELE-EAST 00:49
PROVIDERS: ADMIT Internal Medicine; ATTEND Internal Medicine
PROC: 05HA33Z Insertion of Infusion Device into Left Brachial Vein, Percutaneous Approach (ICD-10-PCS; principal; 2022-05-02)
PROC: B54NZZA Ultrasonography of Left Upper Extremity Veins, Guidance (ICD-10-PCS; 2022-05-02)
DX: J96.00 Acute respiratory failure, unspecified whether with hypoxia or hypercapnia (principal); I82.A11 Acute embolism and thrombosis of right axillary vein; I82.B11 Acute embolism and thrombosis of right subclavian vein; E78.5 Hyperlipidemia, unspecified; F32.9 Major depressive disorder, single episode, unspecified; Z20.822 Contact with and (suspected) exposure to COVID-19; I10 Essential (primary) hypertension; J45.909 Unspecified asthma, uncomplicated; Z93.0 Tracheostomy status; Z93.1 Gastrostomy status
CPT/HCPCS: 36415; 71045; 80053; 82962; 84484; 85025; 85610; 85730; 87040; 87081; 87426; 94640; 97110; 97116; 97163; 97530; G0378; J1815; J2185; J2248

== ENCOUNTER 2025-03-04 17:15 | Emergency (ER) | payer OTHER, MEDICAID ==
[~2025-03-04] VITALS: Ht 167.6 cm; Wt 66.2 kg
[~2025-03-04 17:15] MED LIST changes: +SERT-206 PO; -SERT50TA19 PO
[2025-03-04 17:17] VITALS: BP 131/81; PULSE 94; RESP 20; TEMP 98; O2SAT 97
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
[2025-03-04] MEDS ORDERED: METH-1181 PO (19:40)
[2025-03-04] MEDS ORDERED: METH4PAK PO (19:40)
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
[2025-03-04] MEDS: KETOROLAC TROMETH 60MG/2ML VIAL IM ONE (20:08)
[2025-03-04] MEDS: HYDROcodone-ACET 5/325MG TAB PO ONE (20:08)
== END 2025-03-04 20:15 | disposition home or self-care (01) ==
LOC: ER 17:15
DX: S33.5XXA Sprain of ligaments of lumbar spine, initial encounter (principal); S13.4XXA Sprain of ligaments of cervical spine, initial encounter; R07.89 Other chest pain; J45.909 Unspecified asthma, uncomplicated; E11.9 Type 2 diabetes mellitus without complications; Z79.899 Other long term (current) drug therapy; V89.2XXA Person injured in unspecified motor-vehicle accident, traffic, initial encounter; Y93.89 Activity, other specified; Y92.488 Other paved roadways as the place of occurrence of the external cause; Y99.8 Other external cause status
CPT/HCPCS: 72040; 72100; 96372; 99284; J1885